=== PATIENT | male | born 1975 | race Asian ===

== ENCOUNTER 2023-01-11 10:09 | Emergency (ER) | payer MEDICAID, OTHER, SELFPAY ==
[2023-01-11 10:14] VITALS: BP 168/99; PULSE 52; RESP 19; TEMP 36.6; O2SAT 100; BMI 28.6
--- NOTE | 2023-01-11 13:05 | ED_ITS ---
HPI - Dental/Oral General Chief complaint: Dental/Oral Stated complaint: broken tooth Time Seen by Provider: 01/11/23 12:39 Source: patient, RN notes reviewed and old records reviewed Mode of arrival: ambulatory History of Present Illness HPI Narrative: 47-year-old male with no significant past medical history presenting to the ED complaining of painful loose left upper tooth x3 days. Admits has not seen a dentist for over 3 years. Denies recent dental injury/trauma for procedure, fever/chills, difficulty or inability to swallow MD Complaint: tooth pain Related Data Previous Rx's Medication Instructions Recorded amoxicillin 875 mg-potassium 1 tab PO BID 7 days #14 tabs 01/11/23 clavulanate 125 mg tablet Allergies Allergy/AdvReac Type Severity Reaction Status Date / Time No Known Allergies Allergy Verified 01/11/23 10:14 Review of Systems Review of Systems: Constitutional: No Fever, No Chills ENT/Mouth: +dental pain, No Ear Pain, No Nasal Congestion, No Sinus Pain, No Hoarseness, No sore throat, No Rhinorrhea, No Swallowing Difficulty Cardiovascular: No Chest Pain, No SOB Respiratory: No Cough, No Sputum Gastrointestinal: No Nausea, No Vomiting, No Diarrhea, No Constipation, No Abdominal pain Musculoskeletal: No joint pain, No Myalgias, No Joint Swelling Skin: No Skin Lesions, No rash Neuro: No Weakness Yes all other systems are reviewed and are negative Constitutional: Constitutional: Reports as per HPI [facility] Past Medical History Attestation statement: The following information was validated with the patient. Source: old records reviewed Social History Social History Advance Directives: No Physical Exam Vital Signs: Vital Signs: Last Vital Signs Temp 98 F 01/11/23 10:14 Pulse 52 01/11/23 10:14 Resp 19 01/11/23 10:14 BP 168/99 H 01/11/23 10:14 Pulse Ox 100 01/11/23 10:14 O2 Del Method Room Air 01/11/23 10:14 BMI result Body Mass Index 28.6 Const: General: cooperative, healthy appearing, no acute distress, alert and awake Orientation/consciousness: patient oriented x3 Limitations: no limitations HEENT: Other: +left upper 2nd bicuspid rotten/broken a nd loose, w/gingival erythema and mild swelling. Mildly tender. No fluctuance/induration Head: Yes normal to inspection and Yes atraumatic Ears: hearing grossly normal bilaterally, external ears normal and mastoids normal General nose exam: Normal external nose present Face and sinus: Yes normal facial exam Mouth: Normal oral and palatal mucosa present and no drooling Throat: Yes posterior oropharynx normal, Yes tonsils normal, Yes uvula midline, No peritonsillar mass and No uvula laterally displaced Eyes: General: appearance normal, both eyes and all related structures EOM: EOMs intact bilaterally Neck: Neck: Yes normal visual inspection, Yes no lymphadenopathy and Yes no meningeal signs Resp: Effort & Inspection: normal respiratory effort and no respiratory distress Cardio: Rate: regular rate Skin: Rashes: no rashes Wounds: no wounds Neuro: General: patient oriented x3, tone normal and no meningeal signs Cranial nerves: Yes CN's II-XII intact bilaterally Gait exam (Neuro): Normal gait present Extrem: General: Yes normal to inspection Medical Decision Making Medical Decision Making MDM Narrative: 47-year-old male with no significant past medical history presenting to the ED complaining of painful loose left upper tooth x3 days. On exam vital signs stable, physical exam as above with rotten left upper bicuspid, loose, which interval swelling/erythema, no appreciable abscess. Discussed with patient will initiate antibiotics and needs close dentistry follow-up Results discussed with patient including worrisome signs and symptoms and strict return precautions, and when to return to the emergency department. They verbalized understanding and feel safe for discharge at this time. Differential Diagnosis Differential Diagnoses: The differential diagnosis associated with the presentation includes As above Independent Historian Clinical information obtained from an independent historian. History obtained from or confirmed by: Spouse External Record Review External record reviewed: Inpatient record, Office record, Outpatient record, Prior outpatient labs, Prior outpatient radiology, Primary care record and Outside ED record Tests considered The following testing was considered but not selected: As above Prescription Management I considered prescription management with: Pain Medication and Antibiotic Discharge Plan Discharge Clinical Impression: Dental caries Patient Disposition: Home, Self-Care Instructions: Tooth Extraction (DC) Additional Instructions: Please take antibiotics as prescribed You need to follow-up with a dentist take Tylenol /Motrin as needed Eat soft food You can gargle with warm salt water If symptoms persist or worsen return to the ED Prescriptions: New amoxicillin-pot clavulanate 875-125 mg tablet 1 tab PO BID 7 Days Qty: 14 0RF Referrals: Woody Retana [Dentist] - Taco Cervantes DMD [Dentist] - Willi Boyd DMD [Dentist] - Interventions: ED Discharge Assessment Last Done: 01/11/23 13:17 Discharge Date/Time: 01/11/23 13:17
== END 2023-01-11 13:17 | disposition home or self-care (01) ==
PROVIDERS: Emergency Provider Emergency Medicine
DX: K02.9 Dental caries, unspecified (principal); K08.89 Other specified disorders of teeth and supporting structures
CPT/HCPCS: 99282; 99283

== ENCOUNTER 2023-05-26 12:07 | Emergency (ER) | payer MEDICAID, OTHER, SELFPAY ==
--- NOTE | ~2023-05-26 | XR_ITS ---
History: Pain and swelling. Exams: Left ankle 2 views left foot 3 views FINDINGS: No fracture deformity. Ankle mortise anatomic. No gross effusion. Bulky calcaneal plantar spurring. No mid or forefoot abnormality. XR/XR foot LT 2V IMPRESSION: No fracture. Calcaneal spurring.
--- NOTE | ~2023-05-26 | XR_ITS ---
History: Pain and swelling. Exams: Left ankle 2 views left foot 3 views FINDINGS: No fracture deformity. Ankle mortise anatomic. No gross effusion. Bulky calcaneal plantar spurring. No mid or forefoot abnormality. XR/XR ankle LT min 3V IMPRESSION: No fracture. Calcaneal spurring.
--- NOTE | 2023-05-26 12:10 | ED_ITS ---
HPI - General Adult General Chief complaint: Extremity Injury, Lower Stated complaint: fall / L leg pain Time Seen by Provider: 05/26/23 12:57 Source: patient and RN notes reviewed Mode of arrival: ambulatory Limitations: no limitations History of Present Illness HPI narrative: This is a 47-year-old male, with a hypertension, presenting to the emergency department for evaluation of left ankle pain x1 month. Patient states that 1 month ago he accidentally fell down 2-3 steps and rolled his right ankle. He was able to bear weight on his ankle after the injury however reports that over the last month he has had intermittent swelling in his leftankle as well as associated pain. He has been taking Aleve for his pain which has provided him with relief. Patient also reports that he is originally from [facility] and was previously prescribed hypertensive medication which he has been taking intermittently. He does not have a primary care physician in the area. He denies any chest pain, SOB, dizziness, headaches, tingling, weakness. No other complaints or concerns at this time. MD complaint: right ankle pain Onset (ago): month(s) Location: lower extremity Radiation: non-radiation Severity: moderate Quality: aching Pain Consistency: constant Relieving factors: medication Exacerbating factors: movement Associated symptoms: denies other symptoms Treatments prior to arrival: NSAID Related Data Previous Rx's Medication Instructions Recorded amoxicillin 875 mg-potassium 1 tab PO BID 7 days #14 tabs 01/11/23 clavulanate 125 mg tablet ibuprofen 600 mg tablet 600 mg PO Q6H PRN pain #30 tabs 05/26/23 Allergies Allergy/AdvReac Type Severity Reaction Status Date / Time No Known Allergies Allergy Verified 05/26/23 12:11 Review of Systems Review of Systems: Yes all other systems are reviewed and are negative [facility] Past Medical History Attestation statement: The following information was validated with the patient. Social History Social History Advance Directives: No Physical Exam ED Vital Signs: Vital Signs - 24 hr 05/26/23 12:11 05/26/23 13:29 05/26/23 13:30 Temperature 97.8 F Pulse Rate 77 Respiratory Rate 16 Blood Pressure 184/113 H 175/112 H 177/107 H Pulse Oximetry 99 Oxygen Delivery Method Room Air BMI result Body Mass Index 28.6 General: Awake, alert, and oriented X3. No acute distress. HEENT: Normal inspection CVS: Normal heart rate and rhythm. Pulses normal. Respiratory: No respiratory distress Skin: Warm, dry, no rashes noted to exposed skin. Normal skin color. Normal skin turgor. Extremities: Left ankle with moderate edema noted, with tenderness palpation inferior to the lateral malleolus. No tenderness palpation along the medial and lateral malleolus. Metatarsals are nontender. Full range of motion of the ankle without difficulty or pain. DP pulse 2 + Neuro: Oriented X 3. No motor deficit. No sensory deficit. Course Course Course Narrative: RME:?47 yo male here w/ left ankle pain after slipping at the bottom of a step 3-4 wks ago. Endorses immediate right ankle pain. No head strike or LOC. Able to bear weight and ambulate independently. He was not medically evaluated at time of fall. Last took Aleve yesterday afternoon. Ankle pain/ swelling has persisted prompting him to come to ED for eval. PE: HTN in triage. takes tenomac 50 mg twice a week [place]. No other meds for HTN. Does not follow w/ PCP in [place]. Swelling and tenderness to left lateral foot and lateral malleolus. Full ROM intact. 2+ DP pulses. Ambulating w/ antalgic gait. xrays ordered. Full HPI, ROS and PE to be performed by the primary ED provider. Medications Administered Discontinued Medications Generic Name Dose Route Start Last Admin Trade Name Freq PRN Reason Stop Dose Admin Ibuprofen 600 mg 05/26/23 13:30 05/26/23 13:39 Ibuprofen 600 Mg Tablet PO 05/26/23 13:31 600 mg ONCE ONE Administration Medical Decision Making Medical Decision Making [facility] Narrative: This is a 47-year-old male presenting to the emergency department for evaluation of left ankle and left foot pain status post inversion injury which occurred 1 month ago. Ankle with tenderness palpation along the inferior aspect of the left lateral malleolus. Full range of motion, no evidence of skin erythema or infection. Differential diagnoses include ankle sprain, contusion, fracture. Less likely septic arthritis given full range of motion no erythema. X-rays were obtained, revealing spurring otherwise no fracture. Discussed findings with patient. Recommended RICE techniques, and given orthopedic referral. Given return precautions. Patient understands agrees with plan On arrival, patient hypertensive at 184/113. Patient has no chest pain, shortness of breath, headache, dizziness, blurred vision, or shortness of breath. He has a history hypertension which he was previously prescribed Tenocab-50 in [facility] which he has been without for several years. He states that he takes this once a week. I explained to him that high blood pressure is very dangerous and he needs to have a primary care physician to have care established. He understands and agrees with plan. Given that he is asymptomatic and he has medication at home, deferring treatment at this time, but urged the importance of calling on Sunday to establish primary care physician care. He understands and agrees with plan. Blood pressure improved to 177/107 again he is asymptomatic. Stable for discharge Differential Diagnosis Differential Diagnoses: The differential diagnosis associated with the presentation includes See above Independent Interpretation I performed an independent interpretation of an: Plain X-Ray Interpretation: I reviewed the x-ray and agree with the radiology report. Radiology Impression Discussion of test interpretation with radiology: I have reviewed the radiologist's reading. Radiologist Impression: Ordering Physician: Fela Romano Date of Service: 05/26/23 Procedure(s): XR foot LT 2V Accession Number(s): [id number] cc: Physician,None ; Fela Romano~ History: Pain and swelling. Exams: Left ankle 2 views left foot 3 views FINDINGS: No fracture deformity. Ankle mortise anatomic. No gross effusion. Bulky calcaneal plantar spurring. No mid or forefoot abnormality. XR/XR foot LT 2V IMPRESSION: No fracture. Calcaneal spurring. Dictated By: Doni Newell MD Discharge Plan Discharge Clinical Impression: Ankle sprain and strain Patient Disposition: Home, Self-Care Instructions: Ankle Sprain (ED), Ankle Strain (ED) Additional Instructions: You were seen in the emergency department due to left ankle pain. Your x-ray does not show any broken bones. You likely have a ankle sprain. Please rest, ice, elevate your left ankle. You may take ibuprofen as directed as needed for pain and symptoms. Please follow-up with orthopedics, call on Sunday to make an appointment. Your blood pressure was elevated, you need to follow-up with a primary care physician to have this monitored. It is important to take medication to lower your blood pressure. If any new or worsening symptoms occur including but not limited to worsening at ankle pain, redness, swelling, fevers, chills, chest pain, shortness of breath, headaches, blurred vision, visual changes, please return for re-evaluation. Prescriptions: New ibuprofen 600 mg tablet 600 mg PO Q6H PRN (Reason: pain) Qty: 30 0RF No Action amoxicillin-pot clavulanate 875-125 mg tablet 1 tab PO BID 7 Days Qty: 14 0RF Referrals: [facility] [place] [facility] [Provider Group]
[2023-05-26 12:11] VITALS: BP 184/113; PULSE 77; RESP 16; TEMP 36.6; O2SAT 99; BMI 28.6
[2023-05-26 13:29] VITALS: BP 175/112
[2023-05-26 13:30] VITALS: BP 177/107
[2023-05-26] MEDS: Ibuprofen 600 MG TABLET PO (13:39)
== END 2023-05-26 13:50 | disposition home or self-care (01) ==
PROVIDERS: Emergency Provider Emergency Medicine
DX: S93.402A Sprain of unspecified ligament of left ankle, initial encounter (principal); S96.912A Strain of unspecified muscle and tendon at ankle and foot level, left foot, initial encounter; X50.1XXA Overexertion from prolonged static or awkward postures, initial encounter; Y93.89 Activity, other specified; Y92.9 Unspecified place or not applicable; Y99.9 Unspecified external cause status
CPT/HCPCS: 73610; 73620; 99283; 99284